=== PATIENT | female | born 1995 | race Caucasian/White ===

== ENCOUNTER 2023-12-31 12:04 | Emergency (ER) | payer BC, OTHER ==
[2023-12-31] MEDS ORDERED: KETOROLAC 30 MG/ML INJ ONE (12:10)
[2023-12-31] MEDS ORDERED: BUPIVACAINE 0.5% PF 10 ML VIAL ONE (12:51)
--- NOTE | 2023-12-31 13:00 | EDPHYS ---
Physician Documentation [facility] Name: Dixie Alejandra Age: 28 yrs Sex: Female : 1995 Arrival Date: 12/31/2023 Time: 12:04 Bed 11 Private MD: ED Physician Yoel Matute HPI: 12/30 14:00 This 28 yrs old Female presents to ER via EMS with complaints of Toe Injury. rt 14:00 Patient presents to the ED with injury to left great toe. Patient reportedly kicked a rt "run to arrival. Denies any other injury, acute complaints. Pain is aching, nonradiating, mild in severity, no other aggravating or alleviating factors.. Historical: - Allergies: 12:07 Zithromax; rs5 - PMHx: 12:07 None; rs5 - PSHx: 12:07 None; rs5 - Immunization history:: Adult Immunizations up to date. - Infectious Disease History:: Denies. - Social history:: Smoking status: Patient denies any tobacco usage or history of. - Family history:: not pertinent. ROS: 14:00 Constitutional: Negative for fever, chills, and weight loss, Skin: Negative for injury, rt rash, and discoloration, Neuro: Negative for headache, weakness, numbness, tingling, and seizure, Psych: Negative for depression, anxiety, suicide ideation, homicidal ideation, and hallucinations, 14:00 MS/extremity: Positive for contusion, pain, Exam: 14:00 Constitutional: This is a well developed, well nourished patient who is awake, alert, rt and in no acute distress. Head/Face: Normocephalic, atraumatic. 14:00 Musculoskeletal/extremity: Minimal swelling on left great toenail, nail is split, no active bleeding.. Vital Signs: 12:06 BP 128 / 81; Pulse 77; Resp 18; Temp 97.8(O); Pulse Ox 99% on R/A; rs5 13:01 BP 120 / 77; Pulse 71; Resp 18; Pulse Ox 99% on R/A; rs5 MDM: 12:06 Patient medically screened. rt 14:00 Differential Diagnosis Fracture, contusion. Data reviewed: vital signs, nurses notes. rt ED course: Patient refused x-ray. Patient requested nail be removed, informed her that that was not indicated, did offer to trim the part of the nail that was split and perform nerve block. Patient subsequently left before I was able to do that and before receiving discharge papers.. Administered Medications: 12:15 Drug: Ketorolac IM 15 mg IM once Route: IM; Site: left deltoid; rs5 12:30 Follow up: Response: No adverse reaction rs5 12:40 Drug: Bupivacaine-Epinephrine Infiltration (0.5 %) 5 ml Infiltration once; to bedside rs5 {Note: adm by provider at bedside to affected area.} Route: Infiltration; Disposition Summary: 12/31/23 12:59 Discharge Ordered Notes: Location: Home rt Problem: new rt Symptoms: are unchanged rt Condition: Stable rt Diagnosis - contusion of lef great toe rt Followup: rt - With: Private Physician - When: 2 - 3 days - Reason: Discharge Instructions: - Discharge Summary Sheet rt - Contusion rt Forms: - Medication Reconciliation Form rt - Antibiotic Education rt - Prescription Opioid Use rt - Patient Portal Instructions rt - Leadership Thank You Letter rt Signatures: Dispatcher [employer] EDYoel Warren MD MD rt Isaiah Yepez RN RN rs5 Corrections: (The following items were deleted from the chart) 12:07 12:07 Allergies: No Known Allergies; rs5 rs5 12:55 12:07 Foot Left 3 View+RAD.RAD.BRZ ordered. [facility] TEEAL
--- NOTE | 2023-12-31 13:00 | ER ---
Nurse's Notes [facility] Name: Dixie Alejandra Age: 28 yrs Sex: Female : 1995 Arrival Date: 12/31/2023 Time: 12:04 Bed 11 Private MD: Diagnosis: contusion of lef great toe Presentation: 12/30 12:06 Chief complaint: EMS states: "Kicked an ice chest and cracked her nail on her left rs5 toe". Coronavirus screen: At this time, the client does not indicate any symptoms associated with coronavirus-19. Ebola Screen: No symptoms or risks identified at this time. Initial Sepsis Screen: Does the patient meet any 2 criteria? No. Patient's initial sepsis screen is negative. Does the patient have a suspected source of infection? No. Patient's initial sepsis screen is negative. Risk Assessment: Do you want to hurt yourself or someone else? Patient reports no desire to harm self or others. Onset of symptoms was December 31, 2023. 12:06 Method Of Arrival: EMS: [facility] rs5 12:06 Acuity: OK 4 rs5 Triage Assessment: 12:06 General: Appears in no apparent distress. uncomfortable, Behavior is calm, cooperative. rs5 Historical: - Allergies: 12:07 Zithromax; rs5 - PMHx: 12:07 None; rs5 - PSHx: 12:07 None; rs5 - Immunization history:: Adult Immunizations up to date. - Infectious Disease History:: Denies. - Social history:: Smoking status: Patient denies any tobacco usage or history of. - Family history:: not pertinent. Screenin:06 [facility] ED Fall Risk Assessment (Adult) History of falling in the last 3 months, rs5 including since admission No falls in past 3 months (0 pts) Confusion or Disorientation No (0 pts) Intoxicated or Sedated No (0 pts) Impaired Gait No (0 pts) Mobility Assist Device Used No (0 pt) Altered Elimination No (0 pt) Score/Fall Risk Level 0 - 2 = Low Risk Oriented to surroundings, Maintained a safe environment. Abuse screen: Denies threats or abuse. Nutritional screening: No deficits noted. Tuberculosis screening: No symptoms or risk factors identified. Assessment: 12:06 General: Appears in no apparent distress. uncomfortable, Behavior is calm, cooperative. rs5 Pain: Complains of pain in left toe Pain currently is 7 out of 10 on a pain scale. Quality of pain is described as aching, Is continuous. Neuro: Level of Consciousness is awake, alert, obeys commands, Oriented to person, place, time, situation. Cardiovascular: Patient's skin is warm and dry. Respiratory: Respiratory effort is even, unlabored, Respiratory pattern is regular, symmetrical. GI: Abdomen is round non-distended. : No signs and/or symptoms were reported regarding the genitourinary system. EENT: No signs and/or symptoms were reported regarding the EENT system. Derm: Skin is intact, Skin is pink, warm \\T\\ dry. Musculoskeletal: Range of motion: intact in all extremities, crack noted to fingernail on left toe. 13:01 Reassessment: Patient and/or family updated on plan of care and expected duration. Pain rs5 level reassessed. Patient is alert, oriented x 3, equal unlabored respirations, skin warm/dry/pink. 13:16 Reassessment: Pt left before signing discharge paperwork, provider notified. rs5 Vital Signs: 12:06 BP 128 / 81; Pulse 77; Resp 18; Temp 97.8(O); Pulse Ox 99% on R/A; rs5 13:01 BP 120 / 77; Pulse 71; Resp 18; Pulse Ox 99% on R/A; rs5 ED Course: 12:05 Patient arrived in ED. rs5 12:06 Yoel Matute MD is Attending Physician. rt 12:06 Patient has correct armband on for positive identification. Placed in gown. Bed in low rs5 position. Call light in reach. Side rails up X2. 12:06 No provider procedures requiring assistance completed. rs5 12:07 Triage completed. rs5 12:08 Isaiah Yepez, JACEY is Primary Nurse. rs5 13:01 Patient did not have IV access during this emergency room visit. rs5 Administered Medications: 12:15 Drug: Ketorolac IM 15 mg IM once Route: IM; Site: left deltoid; rs5 12:30 Follow up: Response: No adverse reaction rs5 12:40 Drug: Bupivacaine-Epinephrine Infiltration (0.5 %) 5 ml Infiltration once; to bedside rs5 {Note: adm by provider at bedside to affected area.} Route: Infiltration; Medication: 12:06 VIS not applicable for this client. rs5 Outcome: 12:59 Discharge ordered by . rt 13:10 Discharged to home ambulatory, rs5 13:10 Condition: stable 13:10 Discharge instructions given to patient, family, Instructed on discharge instructions, follow up and referral plans. Demonstrated understanding of instructions, 13:16 Patient left the ED. mb9 Signatures: Teodora Riley RN RN mb9 Yoel Matute MD MD rt Isaiah Yepez RN RN rs5 Corrections: (The following items were deleted from the chart) 12:07 12:07 Allergies: No Known Allergies; rs5 rs5
[2023-12-31 13:30] VITALS: BP 128/81; TEMP 97.8; O2SAT 99
== END 2023-12-31 13:16 | disposition home or self-care (01) ==
LOC: ER 12:04
DX: S90.112A Contusion of left great toe without damage to nail, initial encounter (principal)
CPT/HCPCS: 96372; 99284